=== PATIENT | male | born 1935 | race Caucasian/White ===

== ENCOUNTER 2019-12-09 19:39 | Emergency (ER) | payer MEDICARE ==
--- OUTSIDE RECORDS SUMMARY | 2019-12-09 19:47 | XMS REPORT | Continuity of Care Document ---
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 Carotid artery occlusion Asa Isaac Onset: 10/01/2005 Hyperlipidemia Asa Isaac Onset: 10/01/2005 Palpitations Asa Isaac Onset: 10/01/2005 Social History Type Date Description Comments Sex Unknown Tobacco Use Start: Unknown End: Former Cigarette Smoker 1 quit in 1967 Unknown Pack Daily ETOH Use Rarely consumes alcohol Recreational Drug Use Negative For Denies Drug Use Tobacco Use Start: Unknown End: Patient is a former smoker Unknown Allergies, Adverse Reactions, Alerts Active Allergies Reaction Severity Comments Date PCN 09/21/2005 Erythromycin 09/21/2005 Biaxin 09/21/2005 Medications Active Medications SIG Qnty Indications Ordering Date Provider Metformin HCL ER tab 1 by mouth 90tabs E11.65 Asa Isaac 09/24/2019 500mg every evening Tablets ER 24HR Lipitor 1 by mouth every 90tabs I25.10 Asa Isaac 09/24/2019 20mg Tablets day Calcium 600+D 1 po bid 200tabs E55.9 Asa Isaac 06/28/2016 [id number] Tablets Zostavax injection as 1units Asa Isaac 06/24/2015 ordered 95788Lue/0.65ML Solution Rec Miralax 17 gms in 8 oz 90units K59.09 Asa Isaac 04/28/2015 3350NF Packet h2o every day Pantoprazole Sodium 1 by mouth every 90tabs Asa Isaac 03/04/[address] Tylenol 8 Hour 1 by mouth as 100tabs [place] Asa 02/18/2015 650mg directed Tablets ER Vitamin D 1 po qd 100caps E55.9 Diomedes Isaacl 12/25/2013 5000Unit Capsules Synthroid 1 po qd 90tabs E03.9 Diomedes Isaacl 01/27/2009 50mcg Tablets Allopurinol 1 po qd 100tabs M10.9 Diomedes Isaacl 10/19/2005 300mg Tablets Aspirin Low Dose daily 100units MicDiomedes piedral 81mg Chewtabs Plavix 1 by mouth every 90tabs [place] Asa 75mg Tablets day Nitroglycerin apply 1 patch to Diomedes Isaacl 0.4mg/HR chest apply and Patches 24HR remove after 12 hours Nitrostat 1 by mouth onset Diomedes Isaacl 0.4mg Tablets chest pain may Sub repeat 5 min x 3 then call 911 Gabapentin take one capsule Diomedes Isaacl 100mg by mouth at Capsules bedtime Burgin Carbonate [place] Asa 300mg Capsules Duloxetine HCL 3 by mouth every [place] Asa 30mg day Caps DR Jo Lisinopril 1 by mouth every 90tabs [place] [facility] 20mg Tablets day Immunizations CPT Code Status Date Vaccine Lot # Q2035 Given 06/18/2019 Influenza Virus (Quadrivalent)Splitvirus 3 [id number] Years Of Age And Older 20617 Given 06/18/2019 Influenza Virus Vaccine, Quadrivalent, Split, Preservative Free Q2035 Given 07/06/2017 Influenza Virus (Quadrivalent)Splitvirus 3 Years Of Age And Older Q2037 Given 06/28/2016 Influenza Vaccine (Fluvirin) 5 Years Of Age Or [id number] Older 88093 Given 12/29/2015 Pneumococcal Conjugate Vaccine 13 Valent For [id number] Intramuscular Use Q2035 Given 06/11/2015 Influenza Virus (Quadrivalent)Splitvirus 3 [id number] Years Of Age And Older Q2037 Given 07/09/2014 Influenza Vaccine (Fluvirin) 5 Years Of Age Or [id number] Older Q2038 Given 07/02/2013 Influenza Vaccine (Fluzone) Administered Age 3 And Older Q2038 Given 07/02/2013 Influenza Vaccine (Fluzone) Administered Age 3 [id number] And Older Q2037 Given 06/05/2012 Influenza Vaccine (Fluvirin) 5 Years Of Age Or [id number] Older 67080 Given 11/22/2011 Pneumovax Polyvalent Inj Im [id number] Q2036 Given 06/17/2011 Flulaval [id number] 14695 Given 02/01/2011 Tetanus,Diphtheria,Adut/Adol Pertussis [id number] 35615 Given 06/30/2010 Influenza Vaccine [id number] 78351 Given 07/07/2009 Influenza Vaccine [id number] 79397 Given 07/15/2008 Influenza Vaccine 73258 Given 07/10/2007 Influenza Vaccine 63159 Given 07/10/2007 Influenza Vaccine [id number] 77336 Given 07/18/2006 Influenza Vaccine 20046 Given 07/18/2006 Influenza Vaccine [id number] 46967 Given 09/21/2005 [place] [address] Given 09/21/2005 DT Immunization DIP/Tet (History Only) Vital Signs Date Vital Result Comment 09/24/2019 12:54pm BP Systolic 124 mmHg BP Diastolic 56 mmHg Heart Rate 96 /min Height 63 inches 5'3" Weight 190.00 lb BMI (Body Mass Index) 33.7 kg/m2 O2 % BldC Oximetry 98 % 09/17/2019 10:18am BP Systolic 120 mmHg BP Diastolic 70 mmHg Heart Rate 67 /min Height 63 inches 5'3" Weight 190.00 lb BMI (Body Mass Index) 33.7 kg/m2 O2 % BldC Oximetry 90 % Results Test Acquired Date Facility Test Result H/L Range Note TSH+Free T4 10/05/2019 [facility] TSH 0.86 mIU/L Normal 0.40-4.50 1 [address] [place], [place] [id number] [phone] T4, Free 1.2 ng/dL Normal 0.8-1.8 Laboratory test 10/05/2019 [facility] Uric Acid 2.8 mg/dL Low 4.0- 8.0 2 finding [address] [place], [place] [id number] [phone] Lipid Panel, 10/05/2019 [facility] Cholesterol 116 mg/dL Normal < [address] , [place] [id number] [phone] HDL Cholesterol 44 mg/dL Normal >40 Triglycerides 132 mg/dL Normal <150 LDL-Cholesterol 50 mg/dL(calc) Normal 3 Chol/HDLC Ratio 2.6 (calc) Normal <5.0 Non HDL Cholesterol 72 mg/dL(calc) Normal <130 4 CBC (Includes 10/05/2019 [facility] White 10.8 Normal 3.8-10.8 Diff/PLT) [address] Blood Thousand/uL [place] [address] Count Red Blood Cell Count 3.55 Million/uL Low 4.20-5.80 Hemoglobin 11.3 g/dL Low 13.2-17.1 Hematocrit 34.0 % Low 38.5-50.0 MCV 95.8 fL Normal 80.0-100.0 MCH 31.8 pg Normal 27.0-33.0 MCHC 33.2 g/dL Normal 32.0-36.0 RDW 12.7 % Normal 11.0-15.0 Platelet Count 267 Thousand/uL Normal 140-400 MPV 10.7 fL Normal 7.5-12.5 Absolute Neutrophils 8078 cells/uL High 0409-2790 Absolute Lymphocytes 1987 cells/uL Normal 850-3900 Absolute Monocytes 378 cells/uL Normal 200-950 Absolute Eosinophils 292 cells/uL Normal 15-500 Absolute Basophils 65 cells/uL Normal 0-200 Neutrophils 74.8 % Normal 38-80 Lymphocytes 18.4 % Normal 15-49 Monocytes 3.5 % Normal 0-13 Eosinophils 2.7 % Normal 0-8 Basophils 0.6 % Normal 0-2 Comprehensive Metabolic 10/05/2019 [facility] Glucose 115 mg/dL High 65-[address] [place] [address] [phone] Urea Nitrogen (BUN) 26 mg/dL High 7-25 Creatinine 1.57 mg/dL High 0.70-1.11 6 eGFR Non-Afr. Cambodian 40 mL/min/1.73m2 Low > Or = 60 eGFR 47 mL/min/1.73m2 Low > Or = 60 BUN/Creatinine Ratio 17 (calc) Normal 6-22 Sodium 139 mmol/L Normal 135-146 Potassium 4.0 mmol/L Normal 3.5-5.3 Chloride 107 mmol/L Normal 98-110 Carbon Dioxide 30 mmol/L Normal 20-32 Calcium 9.3 mg/dL Normal 8.6-10.3 Protein, Total 7.0 g/dL Normal 6.1-8.1 Albumin 4.5 g/dL Normal 3.6-5.1 Globulin 2.5 g/dL(calc) Normal 1.9-3.7 Albumin/Globulin Ratio 1.8 (calc) Normal 1.0-2.5 Bilirubin, Total 0.8 mg/dL Normal 0.2-1.2 Alkaline Phosphatase 72 U/L Normal 40-115 Ast 11 U/L Normal 10-35 Alt 10 U/L Normal 9-46 Laboratory 10/05/2019 [facility] Hemoglobin A1c 4.7 Normal <5.7 7 test finding [address] %oftotalHgb [place] [address] [phone] Enhanced PDF Report [id number] PDF IMAGE OFF Basic Metabolic Panel 09/18/2019 [facility] Glucose 144 mg/dL High 65-99 8 W/O Egfr [address] [place] [address] [phone] Urea Nitrogen (BUN) 15 mg/dL Normal 7-25 Creatinine 1.35 mg/dL High 0.70-1.11 9 BUN/Creatinine Ratio 11 (calc) Normal 6-22 Sodium 140 mmol/L Normal 135-146 Potassium 3.8 mmol/L Normal 3.5-5.3 Chloride 106 mmol/L Normal 98-110 Carbon Dioxide 27 mmol/L Normal 20-32 Calcium 8.7 mg/dL Normal 8.6-10.3 Laboratory test 09/18/2019 [facility] Uric Acid 3.0 mg/dL Low 4.0- 8.0 [address] [place] [address] [phone] Enhanced PDF Report [id number] PDF IMAGE OFF RBC Morphology Only 09/11/2019 [facility] Hypochromia 0-1+ [address] [place] [id number] [phone] Poikilocytosis 1+ Anisocytosis 0-1+ Macrocytosis 0-1+ Spherocyte 0-1+ Ovalocytes 0-1+ Slide Review 09/11/2019 [facility] Slide Review . [address] [place] [address] [phone] CBS 09/11/2019 [facility] White Blood 8.9 K/uL Normal 3.4-10. W/Automated [address] Count 5 Diff [place] [address] [phone] Red Blood Count 3.32 M/uL Low 4.20-5.80 Hemoglobin 10.8 gm/dL Low 12.8-17.0 Hematocrit 32.1 % Low 38.0-48.0 Mean Cell Volume 96.7 fl High 80.0-96.0 Mean Corpuscular HGB 32.5 pg Normal 27.0-33.0 Mean Corpuscular HGB Conc 33.6 g/dL Normal 31.7-36.0 Platelet Count 288 K/uL Normal 155-360 Red Cell Distri Width SD 71.8 fl High 36-51 Red Cell Distri Width %CV 20.6 % High 11.6-15.8 Mean Platelet Volume 9.9 fl Normal 6.6-10.6 Neut% 70.1 % Normal 33.0-73.0 Lymph % 21.1 % Normal 20.0-42.0 Benzie % 4.7 % Normal 0.0-10.0 Eo% 2.8 % Normal 0.0-6.6 Bas% 0.6 % Normal 0.0-1.1 Immature Grans 0.7 % Normal 0.0-5.0 NRBC % 0.0 /100WBC < 10/ 100 WBC Neut# 6.26 K/uL Normal 1.8-7.0 Lymph # 1.88 K/uL Normal 1.0-4.0 Benzie # 0.42 K/uL Normal 0.0-0.8 Eos # 0.25 K/uL Normal 0.0-0.5 Baso # 0.05 K/uL Normal 0.0-0.1 Immature Grans Absolute 0.06 K/uL NRBC # 0.00 K/uL Laboratory test 09/11/2019 [facility] Thyroid 2.35 Normal 0.30-4.[address] Stim uIU/[place] [address] Hormone [phone] Free T4 0.93 ng/dL Normal 0.76-1.46 LDL Cholesterol 09/11/2019 [facility] Cholesterol 117 mg/dL <200 [address] [place], [place] [id number] [phone] Triglycerides 101 mg/dL <150 14 HDL Cholesterol 50 mg/dL >40 15 LDL-Cholesterol 47 mg/dL < 100 16 Laboratory test 09/11/2019 [facility] Uric Acid 2.9 mg/dL Low 3.5-7.[address] [place], [place] [id number] [phone] Comprehensive 09/11/2019 [facility] Glucose 115 mg/ dL High 74-106 Metabolic Panel [address] [place], [place] [id number] [phone] BUN 16 mg/dL Normal 7-18 Creatinine 1.5 mg/dL High 0.6-1.3 Glom Filtration Rate, Estimate 48 mL/min >60 If 58 mL/min >60 17 BUN/Creat 10.6 ratio Sodium 140 mmol/L Normal 136-145 Potassium 3.8 mmol/L Normal 3.5-5.1 Chloride 109 mmol/L High 98-107 Carbon Dioxide 26 mmol/L Normal 21-32 Anion Gap 5 mEq/L Low 8-16 Calcium 8.7 mg/dL Normal 8.5-10.1 Total Protein 7.7 g/dL Normal 6.4-8.2 Albumin 4.0 g/dL Normal 3.4-5.0 Globulin 3.7 g/dL Normal 1.9-4.3 Alb/Glob 1.1 ratio Bilirubin,Total 1.0 mg/dL Normal 0.2-1.0 Sgot/Ast 4 U/L Low 15-37 18 SGPT/Alt 16 U/L Normal 12-78 Alkaline Phosphatase 93 U/L Normal 45-117 Glycohemoglobin 09/11/2019 [facility] Glycohemoglobin 4.8 % Normal 4.2-6.[address] (A1c) [place], [place] [id number] [phone] eAG 91 mg/dL Laboratory test 09/11/2019 [facility] Uric Acid < pending> finding [address] [place], [place] [id number] [phone] .TSH+Free T4 09/11/2019 [facility] Thyroid Stim < pending> ([place] [facility]) [address] Hormone [place], [place] [id number] [phone] Free T4 <pending> [facility] 06/12/2019 TSH 1.76 mIU/L 0.40-4.50 20 T4,Free 0.9 ng/dL 0.8-1.8 CBC W/ Diff & PLT 06/12/2019 WBC 8.1 thous/L 3.8-10.8 RBC 3.68 mill/L Low 4.20-5.80 Hemoglobin 11.3 g/dL Low 13.2-17.1 Hematocrit 35.3 % Low 38.5-50.0 MCV 95.9 FL 80.0-100.0 MCH 30.7 pg 27.0-33.0 MCHC 32.0 g/dL 32.0-36.0 RDW 13.4 % 11.0-15.0 Platelet Count 261 thous/L 140-400 MPV 10.5 FL 7.5-12.5 Neutrophils,Absolute 5560 cells/L [phone] Bands,Absolute PENDING Metamyelocytes,Absolute PENDING Myelocytes,Absolute PENDING Promyelocytes,Absolute PENDING Lymphocytes,Absolute 1790 cells/L 850-3900 Monocytes,Absolute 390 cells/L 200-950 Eosinophils,Absolute 280 cells/L 15-500 Basophils,Absolute 40 cells/L 0-200 Blast Cells,Absolute PENDING Nucleated RBC,Absolute PENDING Total Neutrophils,% 69 % 40-75 Bands,% PENDING Metamyelocytes,% PENDING Myelocytes,% PENDING Promyelocytes,% PENDING Total Lymphocytes,% 22.2 % 12-47 Reactive Lymphocytes PENDING Monocytes,% 4.8 % 4-12 Eosinophils,% 3.5 % 0-4 Basophils,% 0.5 % 0-1 21 Blasts,% PENDING Nucleated RBC PENDING Comment PENDING CMP W/GFR 06/12/2019 Sodium 139 mmol/L 135-146 Potassium 4.2 mmol/L 3.5-5.3 Chloride 105 mmol/L 98-110 Carbon Dioxide 29 mmol/L 20-32 22 Calcium 9.0 mg/dL 8.6-10.3 Alkaline Phosphatase 79 U/L 40-115 Ast 9 U/L Low 10-35 Alt 8 U/L Low 9-46 Bilirubin,Total 0.7 mg/dL 0.2-1.2 Glucose 108 mg/dL High 65-99 23 Urea Nitrogen (BUN) 17 mg/dL 7-25 Creatinine 1.41 mg/dL High 0.70-1.11 24 BUN/Creatinine Ratio 12.3 6-22 Protein,Total 6.6 g/dL 6.1-8.1 Albumin 4.2 g/dL 3.6-5.1 Globulin,Calculated 2.4 g/dL 1.9-3.7 A/G Ratio 1.7 1.0-2.5 Egfr Non-Afr. Cambodian 46 ML/MIN/1.73M2 Low > Or = 60 Egfr 53 ML/MIN/1.73M2 Low > Or = 60 Lipid Panel 06/12/2019 Cholesterol 125 mg/dL <199 HDL Cholesterol 44 mg/dL >40 Cholesterol/HDL Ratio 2.8 CALC <5.0 LDL Chol,Calculated 60 mg/dL 0-100 25 Triglycerides 125 mg/dL <150 Non-HDL Cholesterol 82 mg/dL <130 26 Laboratory test finding 06/12/2019 Uric Acid 2.8 mg/dL Low 4.0-8.0 27 TSH & T4,Free 06/12/2019 TSH 1.76 mIU/L 0.40-4.50 T4,Free 0.9 ng/dL 0.8-1.8 Laboratory test finding 06/12/2019 PSA,Total 1.3 NG/ML < Or = 4.0 28 Testosterone,Total,MS 215 ng/dL Low 250-1100 29 Vitamin D,25-Hydroxy,Total,Immunoassay 33 NG/ML 30-100 30 1 FASTING:YES FASTING: YES 2 Therapeutic target for gout patients: <6.0 mg/dL 3 Reference range: <100 Desirable range <100 mg/dL for primary prevention; <70 mg/dL for patients with CHD or diabetic patients with > or = 2 CHD risk factors. LDL-C is now calculated using the Andrea-Zuniga calculation, which is a validated novel method providing better accuracy than the Friedewald equation in the estimation of LDL-C. Andrea SS et al. LAURA. 2013;310(19): 0327-8841 (http://education.Explain My Surgery.Mobilisafe/faq/SYU824) 4 For patients with diabetes plus 1 major ASCVD risk factor, treating to a non-HDL-C goal of <100 mg/dL (LDL-C of <70 mg/dL) is considered a therapeutic option. 5 Fasting reference interval For someone without known diabetes, a glucose value between 100 and 125 mg/dL is consistent with prediabetes and should be confirmed with a follow-up test. 6 For patients >49 years of age, the reference limit for Creatinine is approximately 13% higher for people identified as -Cambodian. 7 For the purpose of screening for the presence of diabetes: <5.7% Consistent with the absence of diabetes 5.7-6.4% Consistent with increased risk for diabetes (prediabetes) > or =6.5% Consistent with diabetes This assay result is consistent with a decreased risk of diabetes. Currently, no consensus exists regarding use of hemoglobin A1c for diagnosis of diabetes in children. According to [place] Diabetes Association (ADA) guidelines, hemoglobin A1c <7.0% represents optimal control in non- diabetic patients. Different metrics may apply to specific patient populations. Standards of Medical Care in Diabetes(ADA). 8 Fasting reference interval For someone without known diabetes, a glucose value >125 mg/dL indicates that they may have diabetes and this should be confirmed with a follow-up test. 9 For patients >49 years of age, the reference limit for Creatinine is approximately 13% higher for people identified as -Cambodian. 10 Therapeutic target for gout patients: <6.0 mg/dL 11 I11.9 E03.9 M10.9 E11.65 12 Instrument flagged sample for slide review. Less than 10% Bands seen, no other immature WBC's seen. Platelet estimate = NORMAL 13 Reference Guidelines*: Desirable: ........... < 200 mg/dL Borderline High: ..... 200-239 mg/dL High: ................ >= 240 mg/dL * The National Cholesterol Education Program (NCEP) 14 Reference Guidelines*: Normal: ............. < 150 mg/dL Borderline High: .... 150-199 mg/dL High: ............... 200-499 mg/dL Very High: .......... > 500 mg/dL * Source: National Cholesterol Education Program (NCEP) 15 Reference Guidelines*: Low HDL: ..... < 40 mg/dL Normal: ..... 40-60 mg/dL Desirable: ... > 60 mg/dL *The National Cholesterol Education Program(NCEP) 16 Reference Guidelines*: Optimal:........... <100 mg/dL Near Optimal....... 100-129 mg/dL Borderline High.... 130-159 mg/dL High............... 160-189 mg/dL Very High.......... >=190 mg/dL * Source: National Cholesterol Education Program (NCEP) 17 Note: Persistent reduction for 3 months or more in an eGFR <60 mL/min/1.73 m2 defines CKD. Patients with eGFR values >/=60 mL/min/1.73 m2 may also have CKD if evidence of persistent proteinuria is present. The original MDRD equation for estimated GFR is not valid for patients less than 18 years of age. Additional information may be found at www.kdoqi.org. 18 Values below the stated reference ranges of AST and ALT can be seen in normal populations. Clinical correlation is suggested. 19 Elevated levels of HbA1c suggest the need for more aggressive treatment of glycemia. The [place] Diabetes Association recommends that a primary goal of therapy should be a HbA1c of <7% and that physicians should re-evaluate the treatment regimen in patients with HbA1c values consistently >8%. 20 FASTING 21 Relative blood cell counts (%) should be compared with absolute cell counts (cells/mcL). Relative counts may not be clinically meaningful if the absolute count of one or more cell type is decreased. Reference ranges for relative cell counts derived from: A Manual of Laboratory and Diagnostics Tests, 9th Ed, Yaz Henry & Jamil, 2015. Pediatric Reference Intervals, 7th Ed, [facility], 2011. 22 Reference range for high altitude clients: 18-30 mmol/L 23 GLUCOSE REFERENCE RANGE BASED ON FASTING SPECIMEN. 24 The upper reference limit for Creatinine is approximately 13% higher for people identified as -Cambodian. 25 LDL-C is now calculated using the Lilian calculation, which is a validated novel method providing better accuracy than the Friedewald equation in the estimation of LDL-C. Andrea CHANDRA et al.LAURA.2013;310(19):2963-5511 Desirable range <100 mg/dL for primary prevention; <70 mg/dL for patients with CHD or diabetic patients with >or= 2 CHD risk factors. 26 For patients with diabetes plus 1 major ASCVD risk factor, treating to a non-HDL-C goal of <100 mg/dL (LDL-C of <70 mg/ dL) is considered a therapeutic option. 27 Therapeutic target for gout patients: <6.0 mg/dL 28 The total PSA value from this assay system is standardized against the WHO standard. The test result will be approximately 20% lower when compared to the equimolar-standardized total PSA (Ayala Norman). Comparison of serial PSA results should be interpreted with this fact in mind. This test was performed using the Siemens chemiluminescent method. Values obtained from different assay methods be used interchangeably. PSA levels, regardless of value, should not be interpreted as absolute evidence of the presence or absence of disease. 29 Men with clinically significant hypogonadal symptoms and testosterone values repeatedly in the range of the 200-300 ng/dL or less, may benefit from testosterone treatment after adequate risk and benefits counseling. For additional information, please refer to http://education.Fidzup.Mobilisafe/faq/ GcbauEgaorrphduglTAVKLPAIV845 (This link is being provided for informational/ educational purposes only.) This test was developed and its analytical performance characteristics have been determined by [employer] [place], [place]. It has not been cleared or approved by the U.S. Food and Drug Administration. This assay has been validated pursuant to the CLIA regulations and is used for clinical purposes. 30 Vitamin D Status 25-OH Vitamin D: Deficiency: <20 ng/mL Insufficiency: 20-29 ng/mL Optimal: > or = 30 ng/mL For 25-OH Vitamin D testing on patients on D2-supplementation and patients for whom quantitation of D2 and D3 fractions is required, the QuestAssureD 25-OH Vit D, (D2,D3),LC/MS/MS is recommended: Order code 70443 (patients >2 yrs). Procedures Date Code Description Status 06/13/2019 78768 Spirometry Graphic Record/Max Voluntary Vent Completed 06/13/2019 05922 EKG-Tracing & Report Completed 06/12/2019 15717 PVR-Atrerial Study Completed 06/12/2019 63038 Holter Monitor Office Completed 06/05/2019 62568 Non-Invcorrotid/Comp /Bilat Study Completed 06/04/2019 29391 Echocardiography Completed 12/11/2015 [id number] Bone Mineral Density Test Completed Medical Devices Description No Information Available Encounters Type Date Location Provider Dx Diagnosis Office Visit 09/24/2019 Main Office Asa Isaac E11.65 Type 2 diabetes mellitus 12:30p with hyperglycemia E78.5 Hyperlipidemia, unspecified I11.9 Hypertensive heart disease without heart failure F31.61 Bipolar disorder, current episode mixed, mild 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 M10.9 Gout, unspecified E03.9 Hypothyroidism, unspecified E55.9 Vitamin D deficiency, unspecified E66.9 Obesity, unspecified Office Visit 09/17/2019 10:00a Main Office Asa Isaac E78.5 Hyperlipidemia, unspecified E11.65 Type 2 diabetes mellitus with hyperglycemia I11.9 Hypertensive heart disease without heart failure F31.61 Bipolar disorder, current episode mixed, mild 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 M10.9 Gout, unspecified E03.9 Hypothyroidism, unspecified Office Visit 06/18/2019 10:00a Main Office Asa Isaac E78.5 Hyperlipidemia, unspecified E11.65 Type 2 diabetes mellitus with hyperglycemia I11.9 Hypertensive heart disease without heart failure F31.61 Bipolar disorder, current episode mixed, mild 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 M10.9 Gout, unspecified E03.9 Hypothyroidism, unspecified M48.50xA Collapsed vertebra, NEC, site unsp, init Z23 Encounter for immunization I34.0 Nonrheumatic mitral (valve) insufficiency K21.9 Gastro-esophageal reflux disease without esophagitis N40.0 Benign prostatic hyperplasia without lower urinry tract symp E29.1 Testicular hypofunction E55.9 Vitamin D deficiency, unspecified I73.9 Peripheral vascular disease, unspecified E66.9 Obesity, unspecified Assessments Date Code Description Provider 09/24/2019 E11.65 Type 2 diabetes mellitus with hyperglycemia Gauss, [facility] 09/24/2019 E78.5 Hyperlipidemia, unspecified Gauss, Asa 09/24/2019 I11.9 Hypertensive heart disease without heart failure Gauss, [facility] 09/24/2019 F31.61 Bipolar disorder, current episode mixed, mild Gauss, [facility] 09/24/2019 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[place], 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 09/24/2019 I65.23 Occlusion and stenosis of bilateral carotid arteries Msuss , [facility] 09/24/2019 M10.9 Gout, unspecified Gauss, [facility] 09/24/2019 E03.9 Hypothyroidism, unspecified Gauss, [facility] 09/24/2019 E55.9 Vitamin D deficiency, unspecified Gauss, [facility] 09/24/2019 E66.9 Obesity, unspecified Gauss, [facility] 09/17/2019 E78.5 Hyperlipidemia, unspecified Gauss, [facility] 09/17/2019 E11.65 Type 2 diabetes mellitus with hyperglycemia Gauss, [facility] 09/17/2019 I11.9 Hypertensive heart disease without heart failure Gauss, [facility] 09/17/2019 F31.61 Bipolar disorder, current episode mixed, mild Gauss, [facility] 09/17/2019 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[place], 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 09/17/2019 I65.23 Occlusion and stenosis of bilateral carotid arteries Gauss , [facility] 09/17/2019 M10.9 Gout, unspecified Gauss, [facility] 09/17/2019 E03.9 Hypothyroidism, unspecified Gauss, [facility] 06/18/2019 E78.5 Hyperlipidemia, unspecified Gauss, [facility] 06/18/2019 E11.65 Type 2 diabetes mellitus with hyperglycemia Gauss, [facility] 06/18/2019 I11.9 Hypertensive heart disease without heart failure Gauss, [facility] 06/18/2019 F31.61 Bipolar disorder, current episode mixed, mild Gauss, [facility] 06/18/2019 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, 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 06/18/2019 I65.23 Occlusion and stenosis of bilateral carotid arteries [place] Asa 06/18/2019 M10.9 Gout, unspecified [place], [facility] 06/18/2019 E03.9 Hypothyroidism, unspecified [place], [facility] 06/18/2019 M48.50xA Collapsed vertebra, not elsewhere classified, site Diomedes Isaacl unspecified, initial encounter for fracture 06/18/2019 Z23 Encounter for immunization [place] [facility] 06/18/2019 I34.0 Nonrheumatic mitral (valve) insufficiency [place], [facility] 06/18/2019 K21.9 Gastro-esophageal reflux disease without esophagitis [facility] 06/18/2019 N40.0 Benign prostatic hyperplasia without lower urinary Poncho[place]omedesl tract symptoms 06/18/2019 E29.1 [facility] E55.9 Vitamin D deficiency, [facility] 06/18/2019 I73.9 Peripheral vascular disease, unspecified [place], [facility] 06/18/2019 E66.9 Obesity, unspecified [place], [facility] 06/13/2019 E78.2 Mixed [facility] 06/13/2019 R06.02 Shortness of [facility] 06/13/2019 J44.9 Chronic obstructive pulmonary disease, unspecified [place], [facility] 06/13/2019 R05 Cough [place], [facility] 06/12/2019 R00.2 [facility]pitations [facility] 06/12/2019 I73.9 Peripheral vascular disease, [facility] 06/05/2019 I65.23 Occlusion and stenosis of bilateral carotid arteries [place] Asa 06/04/2019 I34.0 Nonrheumatic mitral (valve) insufficiency Asa Isaac Plan of Treatment Future Appointment(s):12/25/2019 10:00 am - Asa Isaac at Main [id number] 8:00 am - Nurse at Main Tcwpvi7909/24/2019 - Janet Isaac11.65 Type 2 diabetes mellitus with hyperglycemiaNew Medication:Metformin HCL ER 500 mg - tab 1 by mouth every eveningComments:Continue with medication as directed. Continue with reduced carb diet. To continue with fingerstick monitoring Q Day Continue to follow reduced carbohydrate low fat diet. Exercise regularly. Needs annual blood sugar evaluation. Emphasized weight control to manage blood sugar terminal carman.E78.5 Hyperlipidemia, unspecifiedComments:Counselled on role of diet and excersize and importance to keep compliance with medication if prescribed and side effects. The importance of routine monitoring of blood lipids and liver tests to managetreatment and avoid side effects were discussed. Usual follow up is 3 months for LFT and Lipid profile. Patient education including dietary guidelines and materials provided.I11.9 Hypertensive heart disease without heart failureComments:CONT. TO MONITOR BP, CONT. LOW SALT DIET Discussed lifestyle factors and role of diet and excerns incontrol of disease and treatment goals and targets. Medication side effects and compliance issues addressed as indicated. The importance of ongoing self monitoring of BP and the symptoms of complications such as TIA, CVA and AMI reviewed. The importance of reporting changes in between visits and side effects stressed. monitoring of patient provided BP checks and laboratory tests related to medicationreviewed. Discussed lifestyle factors and role of diet and excerns in control of disease and treatment goals and targets. Medication side effects and compliance issues addressed as indicated. The importance of ongoing self monitoring of BP and the symptoms of complications such as TIA, CVA and AMI reviewed. The importance of reporting changes in between visits and side effects stressed. monitoring of patient provided BP checks and laboratory tests related to medication reviewed.F31.61 Bipolar disorder, current episode mixed, mild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artery without angina pectorisNew Medication:Lipitor 20 mg - 1 by mouth every dayComments:No evidence of angina. Continue medicaton as directed. Monitor cholesterol regularly. Continue daily ASA. Continue regular favthknvH16.23 Occlusion and stenosis of bilateral carotid arteriesComments:Discussed role of life style choices in dietary fats and exercise plays on evolution of circle disease and importance of controlling cholesterol. Medications role and side effects in disease progression prevention discussed and need for compliance with prescribed treatment. Follow up testing for progression such as ultrasound surveillance cowcdgauG68.9 Gout, unspecifiedComments:Discussed dietary guidlines , symptoms and signs of disease. Testing as appropriate for Uric acid andacute inflammatory markers. Treatment of acute flare ups with appropriate medications and side effects such as gastrointestinal upset, bleeding and medication interactions reviewed.E03.9 Hypothyroidism, dcajdkfaccdB70.9 Vitamin D deficiency, uejmueajmrqH33.9 Obesity, unspecifiedComments:Discussed health effects of obesity and healthy diet choices. Effect on other diseases and interaction of dietary factors stressed. Weight loss options discussed and information on community resources,various weight loss strategies and popular diets reviewed. Functional Status Description No Information Available Mental Status Description No Information Available Referrals Description No Information Available
--- OUTSIDE RECORDS SUMMARY | 2019-12-09 19:47 | XMS REPORT | Continuity of Care Document ---
:1935 External Reference #:[id number] Author Name Asa Isaac (transmitted by agent of provider Kenya Hooker) Address [address] [place] [address] Problems Active Problems Provider Date Benign hypertensive [...] po bid 200tabs E55.9 Asa Isaac 06/28/2016 [id number] Tablets Zostavax injection as 1units Asa Isaac 06/24/2015 ordered 76693Syr/0.65ML Solution Rec Miralax 17 gms in 8 [...] Isaacl 100mg by mouth at Capsules bedtime [place] Carbon[place] Asa 300mg Capsules Duloxetine HCL 3 by mouth every [place] Asa 30mg day Caps DR Jo Lisinopril 1 by mouth every 90tabs [place] [facility] 20mg Tablets day Immunizations CPT Code Status Date Vaccine Lot # [id number] Given 06/18/2019 Influenza Virus (Quadrivalent)Splitvirus 3 [id number] Years Of Age And Older 56878 Given 06/18/2019 Influenza Virus Vaccine, Quadrivalent, Split, Preservative Free Q2035 Given 07/06/2017 Influenza Virus (Quadrivalent)Splitvirus 3 Years Of Age And Older Q2037 Given 06/28/2016 Influenza Vaccine (Fluvirin) 5 Years Of Age Or [id number] Older 01077 Given 12/29/2015 Pneumococcal Conjugate Vaccine 13 Valent For [id number] Intramuscular Use Q2035 Given 06/11/2015 Influenza Virus (Quadrivalent)Splitvirus 3 [id number] Years Of Age And Older Q2037 Given 07/09/2014 Influenza Vaccine (Fluvirin) 5 Years Of Age Or [id number] Older Q2038 Given 07/02/2013 Influenza Vaccine (Fluzone) Administered Age 3 And Older Q2038 Given 07/02/2013 Influenza Vaccine (Fluzone) Administered Age 3 [id number] And Older Q2037 Given 06/05/2012 Influenza Vaccine (Fluvirin) 5 Years Of Age Or [id number] Older 08596 Given 11/22/2011 Pneumovax Polyvalent Inj [place] [id number] Q2036 Given 06/17/2011 Flulaval [id number] 10686 Given 02/01/2011 Tetanus,Diphtheria,Adut/Adol Pertussis [id number] 41077 Given 06/30/2010 Influenza Vaccine [id number] 53801 Given 07/07/2009 Influenza Vaccine [id number] 40942 Given 07/15/2008 Influenza Vaccine 33699 Given 07/10/2007 Influenza Vaccine 70667 Given 07/10/2007 Influenza Vaccine [id number] 95424 Given 07/18/2006 Influenza Vaccine 17478 Given 07/18/2006 Influenza Vaccine 27650 09876 Given 09/21/2005 [place] [address] Given 09/21/2005 DT Immunization DIP/Tet (History Only) [...] H/L Range Note TSH+Free T4 10/05/2019 [facility] TSH 0.86 mIU/L Normal 0.40-4.50 1 [address] [place], [place] [id number] [phone] T4, Free 1.2 ng/dL Normal 0.8-1.8 Laboratory test 10/05/2019 [facility] Uric Acid 2.8 mg/dL Low 4.0- 8.0 2 finding [address] [place], [place] [id number] [phone] Lipid Panel, 10/05/2019 [facility] Cholesterol 116 mg/dL Normal < [address] , [place] [id number] [phone] HDL Cholesterol 44 mg/dL Normal >40 Triglycerides 132 mg/dL Normal <150 LDL-Cholesterol 50 mg/dL(calc) Normal 3 Chol/HDLC Ratio 2.6 (calc) Normal <5.0 Non HDL Cholesterol 72 mg/dL(calc) Normal <130 4 CBC (Includes 10/05/2019 [facility] White 10.8 Normal 3.8-10.8 Diff/PLT) [address] Blood Thousand/uL [place] [address] Count Red Blood Cell Count 3.55 Million/uL Low 4.20-5.80 Hemoglobin 11.3 g/dL Low 13.2-17.1 Hematocrit 34.0 % Low 38.5-50.0 MCV 95.8 fL Normal 80.0-100.0 MCH 31.8 pg Normal 27.0-33.0 MCHC 33.2 g/dL Normal 32.0-36.0 RDW 12.7 % Normal 11.0-15.0 Platelet Count 267 Thousand/uL Normal 140-400 MPV 10.7 fL Normal 7.5-12.5 Absolute Neutrophils 8078 cells/uL High 5994-1751 Absolute Lymphocytes 1987 cells/uL Normal 850-3900 Absolute Monocytes 378 cells/uL Normal 200-950 Absolute Eosinophils 292 cells/uL Normal 15-500 Absolute Basophils 65 cells/uL Normal 0-200 Neutrophils 74.8 % Normal 38-80 Lymphocytes 18.4 % Normal 15-49 Monocytes 3.5 % Normal 0-13 Eosinophils 2.7 % Normal 0-8 Basophils 0.6 % Normal 0-2 Comprehensive Metabolic 10/05/2019 [facility] Glucose 115 mg/dL High 65-[address] [place] [address] [phone] Urea Nitrogen (BUN) 26 mg/dL High 7-25 Creatinine 1.57 mg/dL High 0.70-1.11 6 eGFR Non-Afr. [place] 40 mL/min/1.73m2 Low > Or = 60 [...] 10 U/L Normal 9-46 Laboratory 10/05/2019 [facility] Hemoglobin A1c 4.7 Normal <5.7 7 test finding [address] %oftotalHgb [place] [address] [phone] Enhanced PDF Report [id number] PDF IMAGE OFF Basic Metabolic Panel 09/18/2019 [facility] Glucose 144 mg/dL High 65-99 8 W/O Egfr [address] [place] [address] [phone] Urea Nitrogen (BUN) 15 mg/dL Normal 7-25 Creatinine 1.35 mg/dL High 0.70-1.11 9 BUN/Creatinine Ratio 11 (calc) Normal 6-22 Sodium 140 mmol/L Normal 135-146 Potassium 3.8 mmol/L Normal 3.5-5.3 Chloride 106 mmol/L Normal 98-110 Carbon Dioxide 27 mmol/L Normal 20-32 Calcium 8.7 mg/dL Normal 8.6-10.3 Laboratory test 09/18/2019 [facility] Uric Acid 3.0 mg/dL Low 4.0- 8.0 [address] [place] [address] [phone] Enhanced PDF Report [id number] PDF IMAGE OFF RBC Morphology Only 09/11/2019 [facility] Hypochromia 0-1+ [address] [place] [id number] [phone] Poikilocytosis 1+ Anisocytosis 0-1+ Macrocytosis 0-1+ Spherocyte 0-1+ Ovalocytes 0-1+ Slide Review 09/11/2019 [facility] Slide Review . [address] [place] [address] [phone] CBS 09/11/2019 [facility] White Blood 8.9 K/uL Normal 3.4-10. W/Automated [address] Count 5 Diff [place] [address] [phone] Red Blood Count 3.32 M/uL Low 4.20-5.80 [...] 33.0-73.0 Lymph % 21.1 % Normal 20.0-42.0 [place] % 4.7 % Normal 0.0-10.0 Eo% 2.8 % Normal 0.0-6.6 Bas% 0.6 % Normal 0.0-1.1 Immature Grans 0.7 % Normal 0.0-5.0 NRBC % 0.0 /100WBC < 10/ 100 WBC Neut# 6.26 K/uL Normal 1.8-7.0 Lymph # 1.88 K/uL Normal 1.0-4.0 [place] # 0.42 K/uL Normal 0.0-0.8 Eos # 0.25 K/uL Normal 0.0-0.5 Baso # 0.05 K/uL Normal 0.0-0.1 Immature Grans Absolute 0.06 K/uL NRBC # 0.00 K/uL Laboratory test 09/11/2019 [facility] Thyroid 2.35 Normal 0.30-4.[address] Stim uIU/[place] [address] Hormone [phone] Free T4 0.93 ng/dL Normal 0.76-1.46 LDL Cholesterol 09/11/2019 [facility] Cholesterol 117 mg/dL <200 [address] [place], [place] [id number] [phone] Triglycerides 101 mg/dL <150 14 HDL Cholesterol 50 mg/dL >40 15 LDL-Cholesterol 47 mg/dL < 100 16 Laboratory test 09/11/2019 [facility] Uric Acid 2.9 mg/dL Low 3.5-7.[address] [place], [place] [id number] [phone] Comprehensive 09/11/2019 [facility] Glucose 115 mg/ dL High 74-106 Metabolic Panel [address] [place], [place] [id number] [phone] BUN 16 mg/dL Normal 7-18 Creatinine 1.5 [...] Phosphatase 93 U/L Normal 45-117 Glycohemoglobin 09/11/2019 [facility] Glycohemoglobin 4.8 % Normal 4.2-6.[address] (A1c) [place], [place] [id number] [phone] eAG 91 mg/dL Laboratory test 09/11/2019 [facility] Uric Acid < pending> finding [address] [place], [place] [id number] [phone] .TSH+Free T4 09/11/2019 [facility] Thyroid Stim < pending> ([place] [facility]) [address] Hormone [place], [place] [id number] [phone] Free T4 <pending> General Health Panel [facility] [...] MPV 10.5 FL 7.5-12.5 Neutrophils,Absolute 5560 cells/L [phone] Bands,Absolute PENDING Metamyelocytes,Absolute PENDING Myelocytes,Absolute PENDING Promyelocytes,Absolute [...] 1.9-3.7 A/G Ratio 1.7 1.0-2.5 Egfr Non-Afr. [place] 46 ML/MIN/1.73M2 Low > Or = 60 [...] LDL-C. Andrea SS et al. LAURA. 2013;310(19): 9413-9984 (http://education.MyScienceWork.Rewarder/faq/CVG410) 4 For patients with diabetes plus 1 [...] approximately 13% higher for people identified as -Kosovan. 7 For the purpose of screening for the presence of diabetes: <5.7% Consistent with the absence of diabetes 5.7-6.4% Consistent with increased risk for diabetes (prediabetes) > or =6.5% Consistent with diabetes This assay result is consistent with a decreased risk of diabetes. Currently, no consensus exists regarding use of hemoglobin A1c for diagnosis of diabetes in children. According to [place] Diabetes Association (ADA) guidelines, hemoglobin A1c <7.0% [...] approximately 13% higher for people identified as -Kosovan. 10 Therapeutic target for gout patients: <6.0 [...] for more aggressive treatment of glycemia. The [place] Diabetes Association recommends that a primary goal [...] Jamil, 2015. Pediatric Reference Intervals, 7th Ed, [facility] [employer], 2011. 22 Reference range for high altitude clients: 18-30 mmol/L 23 GLUCOSE REFERENCE RANGE BASED ON FASTING SPECIMEN. 24 The upper reference limit for Creatinine is approximately 13% higher for people identified as -K[place]ovan. 25 LDL-C is now calculated using the Lilian calculation, which is a validated novel method providing better accuracy than the Friedewald equation in the estimation of LDL-C. Andrea CHANDRA et al.LAURA.2013;310(19):3696-6782 Desirable range <100 mg/dL for primary prevention; [...] counseling. For additional information, please refer to http://education.PoshVine.Rewarder/faq/ MwgbyQsppcxejobawSNRYBMBVD523 (This link is being provided for informational/ educational purposes only.) This test was developed and its analytical performance characteristics have been determined by [employer] [place], [place]. It has not been cleared or [...] Vit D, (D2,D3),LC/MS/MS is recommended: Order code 52835 (patients >2 yrs). Procedures Date Code Description Status 06/13/2019 41849 Spirometry Graphic Record/Max Voluntary Vent Completed 06/13/2019 86479 EKG-Tracing & Report Completed 06/12/2019 47968 PVR-Atrerial Study Completed 06/12/2019 47884 Holter Monitor Office Completed 06/05/2019 59212 Non-Invcorrotid/Comp /Bilat Study Completed 06/04/2019 01650 Echocardiography Completed 12/11/2015 [id number] Bone Mineral Density Test Completed Medical Devices Description No Information Available Encounters Type Date Location Provider Dx Diagnosis Office Visit 09/24/2019 Main Office Asa Isaac E11.65 Type 2 diabetes mellitus 12:30p with hyperglycemia E78.5 Hyperlipidemia, unspecified I11.9 Hypertensive heart disease without heart failure F31.61 Bipolar disorder, current episode mixed, mild I25.10 Athscl heart disease of telida coronary artery w/o ang pctrs I65.23 Occlusion [...] mixed, mild I25.10 Athscl heart disease of telida coronary artery w/o ang pctrs I65.23 Occlusion and stenosis of bilateral carotid arteries M10.9 Gout, unspecified E03.9 Hypothyroidism, unspecified Office Visit 06/18/2019 10:00a Main Office Asa Isaac E78.5 Hyperlipidemia, unspecified E11.65 Type 2 diabetes mellitus with hyperglycemia I11.9 Hypertensive heart disease without heart failure F31.61 Bipolar disorder, current episode mixed, mild I25.10 Athscl heart disease of telida coronary artery w/o ang pctrs I65.23 Occlusion [...] Type 2 diabetes mellitus with hyperglycemia Gauss, [facility] 09/24/2019 E78.5 Hyperlipidemia, unspecified Gauss, Asa 09/24/2019 I11.9 Hypertensive heart disease without heart failure Gauss, [facility] 09/24/2019 F31.61 Bipolar disorder, current episode mixed, mild Gauss, [facility] 09/24/2019 I25.10 Atherosclerotic heart disease of telida coronary [place], 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 09/24/2019 I65.23 Occlusion and stenosis of bilateral carotid arteries Iauss , [facility] 09/24/2019 M10.9 Gout, unspecified Gauss, [facility] 09/24/2019 E03.9 Hypothyroidism, unspecified Gauss, [facility] 09/24/2019 E55.9 Vitamin D deficiency, unspecified Gauss, [facility] 09/24/2019 E66.9 Obesity, unspecified Gauss, [facility] 09/17/2019 E78.5 Hyperlipidemia, unspecified Gauss, [facility] 09/17/2019 E11.65 Type 2 diabetes mellitus with hyperglycemia Gauss, [facility] 09/17/2019 I11.9 Hypertensive heart disease without heart failure Gauss, [facility] 09/17/2019 F31.61 Bipolar disorder, current episode mixed, mild Gauss, [facility] 09/17/2019 I25.10 Atherosclerotic heart disease of telida coronary [place], 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 09/17/2019 I65.23 Occlusion and stenosis of bilateral carotid arteries Gauss , [facility] 09/17/2019 M10.9 Gout, unspecified Gauss, [facility] 09/17/2019 E03.9 Hypothyroidism, unspecified Gauss, [facility] 06/18/2019 E78.5 Hyperlipidemia, unspecified Gauss, [facility] 06/18/2019 E11.65 Type 2 diabetes mellitus with hyperglycemia Gauss, [facility] 06/18/2019 I11.9 Hypertensive heart disease without heart failure Gauss, [facility] 06/18/2019 F31.61 Bipolar disorder, current episode mixed, mild Gauss, [facility] 06/18/2019 I25.10 Atherosclerotic heart disease of telida coronary Gauss, 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 06/18/2019 I65.23 Occlusion and stenosis of bilateral carotid arteries [place] Asa 06/18/2019 M10.9 Gout, unspecified [place], [facility] 06/18/2019 E03.9 Hypothyroidism, unspecified [place], [facility] 06/18/2019 M48.50xA Collapsed vertebra, not elsewhere classified, site Diomedes Isaacl unspecified, initial encounter for fracture 06/18/2019 Z23 Encounter for immunization [place] [facility] 06/18/2019 I34.0 Nonrheumatic mitral (valve) insufficiency [place], [facility] 06/18/2019 K21.9 Gastro-esophageal reflux disease without esophagitis [facility] 06/18/2019 N40.0 Benign prostatic hyperplasia without lower urinary PonchoDiomedesl tract symptoms 06/18/2019 E29.1 [facility] E55.9 [facility] D deficiency, [facility] I73.9 Peripheral vascular disease, unspecified [place], [facility] 06/18/2019 E66.9 Obesity, unspecified [place], [facility] 06/13/2019 E78.2 Mixed [facility] 06/13/2019 R06.02 [facility]ness of [facility] 06/13/2019 J44.9 Chronic obstructive pulmonary disease, unspecified [place], [facility] 06/13/2019 R05 Cough [place], [facility] 06/12/2019 R00.2 [facility] 06/12/2019 I73.9 [facility]ipheral [facility] disease, [facility] 06/05/2019 I65.23 Occlusion and stenosis of bilateral carotid arteries [place] Asa 06/04/2019 I34.0 Nonrheumatic mitral (valve) insufficiency Asa Isaac Plan of Treatment Future Appointment(s):12/25/2019 10:00 am - Asa Isaac at Main [id number] 8:00 am - Nurse at Main Qqcwsa3509/24/2019 - Janet Isaac11.65 Type 2 diabetes mellitus with hyperglycemiaNew Medication:Metformin HCL ER 500 mg - tab 1 by mouth every eveningComments:Continue with medication as directed. Continue with reduced carb diet. To continue with fingerstick monitoring Q Day Continue to follow reduced carbohydrate low fat diet. Exercise regularly. Needs annual blood sugar evaluation. 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 Continue medicaton as directed. Monitor cholesterol regularly. Continue daily ASA. Continue regular kcajllanN51.23 Occlusion and stenosis of bilateral carotid arteriesComments:Discussed role of life style choices in dietary fats and exercise plays on evolution of telida disease and importance of controlling cholesterol. Medications role and side effects in disease progression prevention discussed and need for compliance with prescribed treatment. Follow up testing for progression such as ultrasound surveillance wpjmjuhhJ03.9 Gout, unspecifiedComments:Discussed dietary guidlines , symptoms and signs of disease. Testing as appropriate for Uric acid andacute inflammatory markers. Treatment of acute flare ups with appropriate medications and side effects such as gastrointestinal upset, bleeding and medication interactions reviewed.E03.9 Hypothyroidism, zcqctptbnhuI21.9 Vitamin D deficiency, aosbpquqmlwW33.9 Obesity, unspecifiedComments:Discussed health effects of obesity and healthy diet choices. Effect on other diseases and interaction of dietary factors stressed. Weight loss options discussed and information on community resources,various weight loss strategies and popular diets reviewed. Functional Status Description No Information Available Mental Status Description No Information Available Referrals Description No Information Available
--- OUTSIDE RECORDS SUMMARY | 2019-12-09 19:47 | XMS REPORT | Continuity of Care Document ---
:1935 External Reference #:[id number] Author Name Rogelio Lambert M.D. (transmitted by agent of provider Stefan Williamson) Address [address], [place] [address] Care Team Providers Name Role Phone Asa Isaac MD - Internal Care Team Information Breastfeeding Peer Counselor [phone] Medicine Problems Active Problems Provider Date Restless legs Andie Kc M.D. Onset: 05/23/2015 Cramp in lower leg Andie Kc M.D. Onset: 05/23/2015 Disease Rogelio Lambert M.D. Onset: 07/05/2018 Nervous system symptoms Rogelio Lambert M.D. Onset: 07/05/2018 Social History Type Date Description Comments Sex Unknown Tobacco Use Start: Unknown Never Smoked Cigarettes Smoking Status Reviewed: 10/24/19 Never Smoked Cigarettes ETOH Use Denies alcohol use Tobacco Use Start: Unknown End: Patient is a former smoker Unknown Recreational Drug Use Denies Drug Use Exercise Type/Frequency Does not exercise Allergies, Adverse Reactions, Alerts Active Allergies Reaction Severity Comments Date Erythromycin 05/19/2015 Biaxin 05/19/2015 Medications Active Medications SIG Qnty Indications Ordering Provider Date Cymbalta 1 tab by mouth 60caps [place], 10/15/[address] twice a day N.P. Part Tylenol Arthritis Pain 2 by mouth every Unknown 8 hours as 650mg Tablets ER needed Calcium 600+D High once a day Unknown Potency [id number] Tablets Synthroid 1 by mouth every Unknown 50mcg Tablets day Allopurinol 1 by mouth every Unknown 300mg Tablets day Aspir-81 1 by mouth every Unknown 81mg Tablets DR day Plavix 1 by mouth every Unknown 75mg Tablets day Nitrostat one sl q5min up Unknown 0.4mg Tablets to 3 doses as Sub needed [place] Carbonate take 1 capsule Unknown 150mg by mouth two Capsules times daily Lisinopril 1 by mouth every Unknown 10mg Tablets day Vitamin D take 1 tab by Unknown (Cholecalciferol) mouth daily 1000Unit Tablets Pantoprazole Sodium 1 by mouth every Unknown 40mg day Solution Rec Atorvastatin Calcium take 1 tablet at Unknown 20mg bedtime Tablets Hydrocodone-Acetaminop as needed Unknown hen 5-325mg Tablets Immunizations Description No Information Available Vital Signs Date Vital Result Comment 10/24/2019 4:01pm Height 65 inches 5'5" Weight 190.00 lb Heart Rate 53 /min BP Systolic 90 mmHg BP Diastolic 68 mmHg BMI (Body Mass Index) 31.6 kg/m2 12/27/2018 2:14pm Weight 192.00 lb Heart Rate 48 /min BP Systolic Sitting 138 mmHg BP Diastolic Sitting 62 mmHg Respiratory Rate 12 /min no respiratory difficulties Pain Level 0 O2 % BldC Oximetry 99 % Results Description No Information Available Procedures Description No Information Available Medical Devices Description No Information Available Encounters Description No Information Available Assessments Date Code Description Provider 10/24/2019 G25.81 Restless legs syndrome Rogelio Lambert M.D. Plan of Treatment Future Appointment(s):04/30/2020 2:30 pm - Rogelio Lambert M.D. at [facility]10/24/2019 - Rogelio Lambert M.D.G25.81 Restless legs syndromeFollow up:Follow up in 6 months Functional Status Description No Information Available Mental Status Description No Information Available Referrals Description No Information Available
[2019-12-09 19:57] VITALS: BP 140/47
[2019-12-09] MEDS ORDERED: Clindamycin CAP* 150 MG PO ONE (20:15)
--- NOTE | 2019-12-09 20:21 | UC ---
Dental HPI - HPI Summary HPI Summary: C/O frontal dental pain with fracture decay #8. Pain off/ on , not really relieved with aleve. Spreading pain up above gum line. - History of Current Complaint Chief Complaint: UCDentalProblem Stated Complaint: DENTAL Time Seen by Provider: 12/09/19 20:06 Hx Obtained From: Patient Onset/Duration: Gradual Onset, Lasting Days - 2, Worse Since - onset Severity: Severe Pain Intensity: 8 Aggravating Factor(s): Heat, Cold, Chewing Alleviating Factor(s): Nothing Related History: Swelling - Allergies/Home Medications Allergies/Adverse Reactions: Allergies Allergy/AdvReac Type Severity Reaction Status Date / Time No Known Allergies Allergy Verified 12/09/19 20:01 Home Medications: Home Medications Levothyroxine 50 mcg PO DAILY 01/03/14 [History Confirmed 12/09/19] Allopurinol TAB* [Zyloprim 300 MG TAB*] 300 mg PO DAILY 01/14/16 [History Confirmed 12/09/19] Atorvastatin* [Lipitor 20 MG*] 20 mg PO QPM 01/14/16 [History Confirmed 12/09/19 ] DULoxetine DR CAP* [Cymbalta CAP*] 30 mg PO BEDTIME 01/14/16 [History Confirmed 12/09/19] Lisinopril TAB* [Prinivil TAB 5 MG*] 10 mg PO BEDTIME 01/14/16 [History Confirmed 12/09/19] [place] Carbonate 150 mg PO BID 01/14/16 [History Confirmed 12/09/19] Pantoprazole TAB * [Protonix TAB*] 40 mg PO DAILY 01/14/16 [History Confirmed ] Aspirin EC TAB* [Ecotrin EC Low Dose 81 MG*] 81 mg PO DAILY 02/25/16 [History Confirmed 12/09/19] clindamycin HCL [Clindamycin HCl] 150 mg PO QID #40 capsule 12/09/19 [Rx] PMH/Surg Hx/FS Hx/Imm Hx Endocrine History: Hypothyroidism, Dyslipidemia Cardiovascular History: Cardiac Disease, Hypertension - Surgical History Surgical History: Yes Surgery Procedure, Year, and Place: CATARACTS, GALLBLADDER, carotid endarterectomy, cardiac stent - Family History Known Family History: Positive: Hypertension - Social History Occupation: Retired Lives: With Family Alcohol Use: None Substance Use Type: None Smoking Status (MU): Former Smoker When Did the Patient Quit Smoking/Using Tobacco: 1968 Review of Systems All Other Systems Reviewed And Are Negative: Yes ENT: Positive: Dental Pain Physical Exam Triage Information Reviewed: Yes Appearance: Well-Appearing, Well-Nourished, Pain Distress - mild Vital Signs: Initial Vital Signs Temp 97.5 F 12/09/19 19:49 Pulse 64 12/09/19 19:49 Resp 16 12/09/19 19:49 BP 140/47 12/09/19 19:49 Pulse Ox 100 12/09/19 19:49 Vital Signs Reviewed: Yes Eyes: Positive: Conjunctiva Clear ENT: Positive: Pharynx normal, TMs normal Dental: Positive: Gross Decay/Caries @ - multiple, Dental Fracture @ - Multiple including #8, Abscess @ - vs cellulitis #8 Neck exam: Normal Respiratory Exam: Normal Cardiovascular Exam: Normal Musculoskeletal Exam: Normal Neurological Exam: Normal Psychological Exam: Normal Skin Exam: Normal Dental Complaint Course/Dx - Differential Dx/Diagnosis Differential Diagnosis/Dx: Dental Abscess, Dental Caries, Fractured Tooth, Gingivitis, Odontogenic Pain Provider Diagnosis: Dentoalveolar cellulitis Discharge ED - Sign-Out/Discharge Documenting (check all that apply): Patient Departure All imaging exams completed and their final reports reviewed: No Studies - Discharge Plan Condition: Stable Disposition: HOME Prescriptions: clindamycin HCL [Clindamycin HCl] 150 mg PO QID #40 capsule Patient Education Materials: Dental Abscess (ED) Referrals: Asa Isaac MD [Primary Care Provider] - Additional Instructions: make appointment with the oral surgeon. - Billing Disposition and Condition Condition: STABLE Disposition: Home
== END 2019-12-09 20:34 | disposition home or self-care (01) ==
LOC: UCCORT 19:39
DX: K04.7 Periapical abscess without sinus (principal); E03.9 Hypothyroidism, unspecified; E78.5 Hyperlipidemia, unspecified; I10 Essential (primary) hypertension; Z79.82 Long term (current) use of aspirin; Z87.891 Personal history of nicotine dependence; Z79.890 Hormone replacement therapy; Z79.899 Other long term (current) drug therapy
CPT/HCPCS: 99212; A9270-GY; G0463